=== PATIENT | female | born 1970 | race Caucasian/White ===

== ENCOUNTER 2018-06-20 14:27 | Emergency (ER) | payer BC ==
[2018-06-20] MEDS ORDERED: Sodium Chloride 0.9% 1,000 ML IV ONE ×2 (16:18→19:05)
[2018-06-20] MEDS ORDERED: Ondansetron 4 MG/2 ML SDV IVPUSH ONE (16:18)
[2018-06-20] MEDS ORDERED: Ketorolac 30 MG/ML SDV IVPUSH ONE (16:31)
[2018-06-20] MEDS ORDERED: Albuterol/Ipratropium 3.0-0.5 MG/3 ML Neb Soln NEB ONE (16:32)
--- NOTE | 2018-06-20 16:32 | EDM.PDOC ---
ED HPI GENERAL MEDICAL PROBLEM - General Chief Complaint: Respiratory Problem Stated Complaint: WEAKNESS Time Seen by Provider: 06/20/18 16:10 Source of Information: Reports: Patient History Limitations: Reports: No Limitations - History of Present Illness INITIAL COMMENTS - FREE TEXT/NARRATIVE: HISTORY AND PHYSICAL: History of present illness: Patient is a 48-year-old female who presents to the ED today with concern of headache, body aches, low-grade fever, and cough 2 days. Patient states she's also been having some nausea with occasional vomiting and episodes of diarrhea. Patient states her diarrhea is watery and occurs every time she eats. Patient has not taken anything for her symptoms. Patient states she also feels as if her "kidneys hurt". Patient states that she has been coughing so hard that the area where her kidneys are, "hurt." Patient denies chest pain, shortness of breath. Denies neck stiff ness, change in vision, syncope, or near syncope. Denies abdominal pain, or dysuria. Has not noted any blood in urine or stool. Patient states she has a history of a kidney issue but is not sure what. Patient denies any other health history. Review of systems: As per history of present illness and below otherwise all systems reviewed and negative. Past medical history: As per history of present illness and as reviewed below otherwise noncontributory. Surgical history: As per history of present illness and as reviewed below otherwise noncontributory. Social history: See social history for further information Family history: As per history of present illness and as reviewed below otherwise noncontributory. Physical exam: General: Patient is alert, oriented, and in no acute distress. She is sitting comfortably on exam table but is mildly tired appearing. HEENT: Atraumatic, normocephalic, pupils equal and reactive bilaterally, negative for conjunctival pallor or scleral icterus, mucous membranes dry, TMs normal bilaterally, throat clear, neck supple, nontender, trachea midline. No drooling or trismus noted. No meningeal signs. No hot potato voice noted. Lungs: Coughing illicit throughout exam and lungs sounds are limited due to coughing. Otherwise, clear to auscultation, breath sounds equal bilaterally, chest nontender. Heart: S1S2, regular rate and rhythm without overt murmur Abdomen: Obese, soft, nondistended, nontender. Negative for masses or hepatosplenomegaly. Negative for costovertebral tenderness. Pelvis: Stable nontender. Genitourinary: Deferred. Rectal: Deferred. Skin: Intact, warm, dry. No lesions or rashes noted. Extremities: Atraumatic, negative for cords or calf pain. Neurovascular unremarkable. Neuro: Awake, alert, oriented. Cranial nerves II through XII unremarkable. Cerebellum unremarkable. Motor and sensory unremarkable throughout. Exam nonfocal. Notes: On exam, patient does have coughing and appears to be volume depleted. Will do labs and imaging today. Patient is positive for influenza A. Dr. Cummins was involved in patients case. Did offer admission to patient but she declines at this time. She does express improvement of symptoms following therapeutics today. Discussed the importance for follow-up with her primary care provider. 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 Encourage patient to keep his appointment as scheduled. Supportive care measures were reviewed and discussed. Voices understanding and is agreeable to plan of care. Denies any further questions or concerns at this time. Diagnostics: CBC, CMP, stool studies, C. difficile, influenza, strep, UA, chest x-ray Therapeutics: DuoNeb, Toradol, morphine, Zofran, saline Prescription: Proair, Medrol Dose Pack, Tamiflu Impression: Influenza A Plan: 1. Take standard infectious contact precautions as discussed. 2. Take medications as prescribed. 3. Supportive care measures such as Tylenol and/or ibuprofen as directed for pain and fever management. Encourage small frequent sips of fluids to prevent dehydration. 4. Follow-up with your primary care provider as discussed. Return to the ED as needed and as discussed. Definitive disposition and diagnosis as appropriate pending reevaluation and review of above. Generalized Pain Score (Numeric/FACES): 8 - Related Data Allergies Allergy/AdvReac Type Severity Reaction Status Date / Time No Known Allergies Allergy Verified 06/20/18 14:51 Home Meds: Home Meds Losartan/Hydrochlorothiazide [Losartan-HCTZ 100-25 MG] 1 each PO DAILY 08/19/13 [History] Nitroglycerin 0.4 mg SL ASDIRECTED PRN #30 tab.subl 08/20/13 [Rx] Past Medical History HEENT History: Reports: None Cardiovascular History: Reports: High Cholesterol Respiratory History: Reports: None Genitourinary History: Reports: None TUGBOAT PILOT History: Reports: Dysfunctional Uterine Bleeding Musculoskeletal History: Reports: None Neurological History: Reports: None Psychiatric History: Reports: None Endocrine/Metabolic History: Reports: None Hematologic History: Reports: None Immunologic History: Reports: None Oncologic (Cancer) History: Reports: None Dermatologic History: Reports: None - Infectious Disease History Infectious Disease History: Reports: None - Past Surgical History Head Surgeries/Procedures: Reports: None GI Surgical History: Reports: Cholecystectomy Female Surgical History: Reports: Hysterectomy Social & Family History - Tobacco Use Smoking Status *Q: Current Some Day Smoker Years of Tobacco use: 20 Packs/Tins Daily: 0.2 - Caffeine Use Caffeine Use: Reports: Coffee - Recreational Drug Use Recreational Drug Use: No ED ROS GENERAL - Review of Systems Review Of Systems: ROS reveals no pertinent complaints other than HPI. ED EXAM, GENERAL - Physical Exam Exam: See Below (See dictation) Course - Vital Signs Last Recorded V/S: Last Vital Signs Temp 37.3 C 06/20/18 20:03 Pulse 112 H 06/20/18 20:03 Resp 18 06/20/18 20:03 BP 114/62 06/20/18 20:03 Pulse Ox 93 L 06/20/18 20:03 - Orders/Labs/Meds Orders: Active Orders 24 hr Category Date Time Status RT Aerosol Therapy [RC] ASDIRECTED Care 06/20/18 16:32 Active CDIFF TOX A+B [OP] Stat Lab 06/20/18 16:18 Ordered CULTURE BLOOD [BC] Stat Lab 06/20/18 19:38 Received CULTURE BLOOD [BC] Stat Lab 06/20/18 19:46 Received CULTURE STOOL + CAMPY+SHIGATOX [RM] Stat Lab 06/20/18 16:18 Ordered CULTURE STREP A CONFIRMATION [RM] Stat Lab 06/20/18 17:00 Results CULTURE URINE [] Stat Lab 06/20/18 18:30 Received OVA & PARASITES BY IMMUNOASSAY [MREF] Stat Lab 06/20/18 16:18 Ordered STREP SCRN A RAPID W CULT CONF [RM] Stat Lab 06/20/18 17:00 Results Sodium Chloride 0.9% [Normal Saline] 1,000 ml Med 06/20/18 19:05 Active IV STAT Blood Culture x2 Reflex Set [OM.PC] Stat Oth 06/20/18 19:05 Ordered Medication Orders Sodium Chloride (Normal Saline) 1,000 mls @ 999 mls/hr IV STAT ONE Stop: 06/20/18 20:05 Last Admin: 06/20/18 19:26 Dose: 999 mls/hr Labs: Laboratory Tests 06/20/18 06/20/18 06/20/18 Range/Units 17:00 17:00 18:30 WBC 15.20 H (4.0-11.0) K/uL RBC 4.34 (4.30-5.90) M/uL Hgb 14.2 (12.0-16.0) g/dL Hct 42.5 (36.0-46.0) % MCV 97.9 (80.0-98.0) fL MCH 32.7 H (27.0-32.0) pg MCHC 33.4 (31.0-37.0) g/dL RDW Std Deviation 54.3 (28.0-62.0) fl RDW Coeff of Nikhil 15 (11.0-15.0) % Plt Count 204 (150-400) K/uL MPV 10.20 (7.40-12.00) fL Neut % (Auto) 78.1 (48.0-80.0) % Lymph % (Auto) 12.4 L (16.0-40.0) % [place] % (Auto) 8.9 (0.0-15.0) % Eos % (Auto) 0.3 (0.0-7.0) % Baso % (Auto) 0.3 (0.0-1.5) % Neut # (Auto) 11.9 H (1.4-5.7) K/uL Lymph # (Auto) 1.9 (0.6-2.4) K/uL [place] # (Auto) 1.4 H (0.0-0.8) K/uL Eos # (Auto) 0.0 (0.0-0.7) K/uL Baso # (Auto) 0.0 (0.0-0.1) K/uL Nucleated RBC % 0.0 /100WBC Nucleated RBCs # 0 K/uL Sodium 142 (136-145) mmol/L Potassium 4.0 (3.5-5.1) mmol/L Chloride 106 (98-107) mmol/L Carbon Dioxide 23.6 (21.0-32.0) mmol/L BUN 20 H (7.0-18.0) mg/dL Creatinine 1.3 H (0.6-1.0) mg/dL Est Cr Clr Drug Dosing 39.50 mL/min Estimated GFR (MDRD) 43.5 ml/min Glucose 95 (74-106) mg/dL Calcium 8.9 (8.5-10.1) mg/dL Total Bilirubin 0.2 (0.2-1.0) mg/dL AST 23 (15-37) IU/L ALT 32 (14-63) IU/L Alkaline Phosphatase 90 (46-116) U/L Total Protein 7.5 (6.4-8.2) g/dL Albumin 2.9 L (3.4-5.0) g/dL Globulin 4.6 H (2.6-4.0) g/dL Albumin/Globulin Ratio 0.6 L (0.9-1.6) Urine Color YELLOW Urine Appearance CLEAR Urine pH 5.5 (5.0-8.0) Ur Specific [place] 1.025 (1.001-1.035) Urine Protein >=300 H (NEGATIVE) mg/dL Urine Glucose (UA) NEGATIVE (NEGATIVE) mg/dL Urine Ketones 15 H (NEGATIVE) mg/dL Urine Occult Blood MODERATE H (NEGATIVE) Urine Nitrite NEGATIVE (NEGATIVE) Urine Bilirubin NEGATIVE (NEGATIVE) Urine Urobilinogen 0.2 (<2.0) EU/dL Ur Leukocyte Esterase NEGATIVE (NEGATIVE) Urine RBC 2-3 (0-2/HPF) Urine WBC 0-1 (0-5/HPF) Ur Epithelial Cells RARE (NONE-FEW) Urine Bacteria RARE (NEGATIVE) Meds: Medications Generic Name Dose Route Start Last Admin Trade Name Freq PRN Reason Stop Dose Admin Sodium Chloride 1,000 mls @ 999 mls/hr 06/20/18 19:05 06/20/18 19:26 Normal Saline IV 06/20/18 20:05 999 mls/hr STAT ONE Administration Discontinued Medications Generic Name Dose Route Start Last Admin Trade Name Freq PRN Reason Stop Dose Admin Acetaminophen 1,000 mg 06/20/18 18:39 06/20/18 18:46 Tylenol PO 06/20/18 18:40 Not Given NOW ONE Acetaminophen Confirm 06/20/18 18:39 06/20/18 18:42 Tylenol Extra Strength Administered 06/20/18 18:40 1,000 mg Dose Administration 1,000 mg .ROUTE .STK-MED ONE Albuterol/Ipratropium 3 ml 06/20/18 16:32 06/20/18 16:46 Duoneb 3.0-0.5 Mg/3 Ml NEB 06/20/18 16:33 3 ml ONETIME ONE Administration Sodium Chloride 1,000 mls @ 999 mls/hr 06/20/18 16:18 06/20/18 16:53 Normal Saline IV 06/20/18 17:18 999 mls/hr STAT ONE Administration Ketorolac Tromethamine 30 mg 06/20/18 16:31 06/20/18 16:57 Toradol IVPUSH 06/20/18 16:32 Not Given ONETIME ONE Morphine Sulfate 2 mg 06/20/18 18:18 06/20/18 18:33 Morphine IVPUSH 06/20/18 18:19 2 mg ONETIME ONE Administration Ondansetron HCl 4 mg 06/20/18 16:18 06/20/18 16:53 Zofran IVPUSH 06/20/18 16:19 4 mg ONETIME ONE Administration Departure - Departure Time of Disposition: 20:03 Disposition: Home, Self-Care 01 Clinical Impression: Influenza A - Discharge Information Instructions: Influenza, Adult, [id number] Referrals: PCP,Unknown [Primary Care Provider] - Forms: ED Department Discharge Additional Instructions: The following information is given to patients seen in the emergency department who are being discharged to home. This information is to outline your options for follow-up care. We provide all patients seen in our emergency department with a follow-up referral. The need for follow-up, as well as the timing and circumstances, are variable depending upon the specifics of your emergency department visit. If you don't have a primary care physician on staff, we will provide you with a referral. We always advise you to contact your personal physician following an emergency department visit to inform them of the circumstance of the visit and for follow-up with them and/or the need for any referrals to a consulting specialist. The emergency department will also refer you to a specialist when appropriate. This referral assures that you have the opportunity for follow-up care with a specialist. All of these measure are taken in an effort to provide you with optimal care, which includes your follow-up. Under all circumstances we always encourage you to contact your private physician who remains a resource for coordinating your care. When calling for follow-up care, please make the office aware that this follow-up is from your recent emergency room visit. If for any reason you are refused follow-up, please contact the [facility] Emergency Department at and asked to speak to the emergency department charge nurse. [facility] [address] [place] [id number] [id number] 1. Take standard infectious contact precautions as discussed. 2. Take medications as prescribed. 3. Supportive care measures such as Tylenol and/or ibuprofen as directed for pain and fever management. Encourage small frequent sips of fluids to prevent dehydration. 4. Follow-up with your primary care provider as discussed. Return to the ED as needed and as discussed. - My Orders Last 24 Hours: My Active Orders 06/20/18 16:18 CDIFF TOX A+B [OP] Stat CULTURE STOOL + CAMPY+SHIGATOX [RM] Stat OVA & PARASITES BY IMMUNOASSAY [MREF] Stat 06/20/18 16:32 RT Aerosol Therapy [RC] ASDIRECTED 06/20/18 17:00 CULTURE STREP A CONFIRMATION [RM] Stat STREP SCRN A RAPID W CULT CONF [RM] Stat 06/20/18 18:30 CULTURE URINE [RM] Stat 06/20/18 19:05 Sodium Chloride 0.9% [Normal Saline] 1,000 ml IV STAT Blood Culture x2 Reflex Set [OM.PC] Stat 06/20/18 19:38 CULTURE BLOOD [BC] Stat 06/20/18 19:46 CULTURE BLOOD [BC] Stat - Assessment/Plan Last 24 Hours: My Active Orders 06/20/18 16:18 CDIFF TOX A+B [OP] Stat CULTURE STOOL + CAMPY+SHIGATOX [RM] Stat OVA & PARASITES BY IMMUNOASSAY [MREF] Stat 06/20/18 16:32 RT Aerosol Therapy [RC] ASDIRECTED 06/20/18 17:00 CULTURE STREP A CONFIRMATION [RM] Stat STREP SCRN A RAPID W CULT CONF [RM] Stat 06/20/18 18:30 CULTURE URINE [RM] Stat 06/20/18 19:05 Sodium Chloride 0.9% [Normal Saline] 1,000 ml IV STAT Blood Culture x2 Reflex Set [OM.PC] Stat 06/20/18 19:38 CULTURE BLOOD [BC] Stat 06/20/18 19:46 CULTURE BLOOD [BC] Stat
--- NOTE | 2018-06-20 17:35 | CR ---
Indication: Chest pain, cough and shortness of breath Technique: Chest 2 views Comparison: None Findings: Cardiovascular and mediastinum: Heart size and vasculature are normal in caliber and appearance. Lungs and pleural spaces: Lungs are clear. No sign of infiltrate or mass. No sign of pleural effusion. No pneumothorax. Bones and soft tissues: No significant findings. Impression: No acute or significant findings. Dictated by Jacky Perkins MD @ Jun 20 2018 5:33PM Signed by Dr. Jacky Perkins @ Jun 20 2018 5:34PM
[2018-06-20] MEDS ORDERED: Morphine 2 MG/ML Syringe IVPUSH ONE (18:18)
[2018-06-20] MEDS ORDERED: Acetaminophen 500 MG Tab ONE (18:39)
[2018-06-20] MEDS ORDERED: Acetaminophen 325 MG Tab PO ONE (18:39)
== END 2018-06-20 20:45 | disposition home or self-care (01) ==
LOC: MW.ED 14:27
DX: J10.1 Influenza due to other identified influenza virus with other respiratory manifestations (principal); F17.210 Nicotine dependence, cigarettes, uncomplicated; E78.00 Pure hypercholesterolemia, unspecified; Z79.899 Other long term (current) drug therapy
CPT/HCPCS: 36415; 71046; 80053; 81001; 85025; 87040; 87081; 87086; 87804; 87880; 94640; 96361; 96374; 96375; 99285; A9270; J2270; J2405; J7040; 99284; J7620-GY

== ENCOUNTER 2018-10-21 14:12 | Emergency (ER) | payer BC ==
[2018-10-21] MEDS ORDERED: Ketorolac 30 MG/ML SDV IM ONE (14:25)
--- NOTE | 2018-10-21 14:25 | EDM.PDOC ---
ED HPI GENERAL MEDICAL PROBLEM - General Chief Complaint: Back Pain or Injury Stated Complaint: BACK/SIDE PAIN Time Seen by Provider: 10/21/18 14:21 Source of Information: Reports: Patient History Limitations: Reports: No Limitations - History of Present Illness INITIAL COMMENTS - FREE TEXT/NARRATIVE: History of present illness: []Patient fell 5 days ago while on a hike and with her left arm up and fell onto her left chest. Some but now she states it is hard to breathe. Review of systems: As per history of present illness and below otherwise all systems reviewed and negative. Past medical history: As per history of present illness and as reviewed below otherwise noncontributory. Surgical history: As per history of present illness and as reviewed below otherwise noncontributory. Social history: No reported history of drug or alcohol abuse. Family history: As per history of present illness and as reviewed below otherwise noncontributory. Physical exam: General: Well developed, well nourished in NAD HEENT: Atraumatic, normocephalic, pupils reactive, negative for conjunctival pallor or scleral icterus, mucous membranes moist, throat clear, neck supple, nontender, trachea midline. Lungs: Clear to auscultation, breath sounds equal bilaterally, chest tender left without any cutaneous or bony crepitance, Heart: S1S2, regular, negative for clicks, rubs, or JVD. Abdomen: NABS, Soft, nondistended, nontender no rebound or guarding. Negative for masses or hepatosplenomegaly. Negative for costovertebral tenderness. Pelvis: Stable nontender. Genitourinary: Deferred. Rectal: Deferred. Extremities: Atraumatic, negative for cords or calf pain. Neurovascular unremarkable. Neuro: Awake, alert, oriented. Cranial nerves II through XII unremarkable. Cerebellum unremarkable. Motor and sensory unremarkable throughout. Exam nonfocal. Skin:warm and dry Diagnostics: Chest x-ray rib series Therapeutics: Tramadol ED Course: Stable Impression: Sixth rib fracture nondisplaced no pneumothorax Prescriptions: Tramadol Plan: Take meds as directed, follow up with your primary care physician, return to ER if symptoms worsen or change. Definitive disposition and diagnosis as appropriate pending reevaluation and review of above. - Related Data Allergies Allergy/AdvReac Type Severity Reaction Status Date / Time No Known Allergies Allergy Verified 10/21/18 14:38 Home Meds: Home Meds Losartan/Hydrochlorothiazide [Losartan-HCTZ 100-25 MG] 1 each PO DAILY 08/19/13 [History] Nitroglycerin 0.4 mg SL ASDIRECTED PRN #30 tab.subl 08/20/13 [Rx] traMADol HCl [Tramadol HCl] 50 mg PO Q6H PRN #16 tablet 10/21/18 [Rx] Past Medical History HEENT History: Reports: None Cardiovascular History: Reports: High Cholesterol Respiratory History: Reports: None Genitourinary History: Reports: None [employer] History: Reports: Dysfunctional Uterine Bleeding Musculoskeletal History: Reports: None Neurological History: Reports: None Psychiatric History: Reports: None Endocrine/Metabolic History: Reports: None Hematologic History: Reports: None Immunologic History: Reports: None Oncologic (Cancer) History: Reports: None Dermatologic History: Reports: None - Infectious Disease History Infectious Disease History: Reports: None - Past Surgical History Head Surgeries/Procedures: Reports: None GI Surgical History: Reports: Cholecystectomy Female Surgical History: Reports: Hysterectomy Social & Family History - Caffeine Use Caffeine Use: Reports: Coffee ED ROS GENERAL - Review of Systems Review Of Systems: See Below ED EXAM, GENERAL - Physical Exam Exam: See Below Course - Orders/Labs/Meds Meds: Medications Discontinued Medications Generic Name Dose Route Start Last Admin Trade Name Freq PRN Reason Stop Dose Admin Ketorolac Tromethamine 30 mg 10/21/18 14:25 10/21/18 14:37 Toradol IM 10/21/18 14:26 Not Given ONETIME ONE Tramadol HCl 50 mg 10/21/18 14:29 10/21/18 14:32 Ultram PO 10/21/18 14:30 50 mg ONETIME ONE Administration Tramadol HCl Confirm 10/21/18 14:30 10/21/18 14:37 Ultram Administered 10/21/18 14:31 Not Given Dose 50 mg .ROUTE .STK-MED ONE Departure - Departure Time of Disposition: 15:34 Disposition: Home, Self-Care 01 Condition: Good Clinical Impression: Left rib fracture Clinical Impression: (Ruled Out): Fracture of six ribs of left side Prescriptions: traMADol HCl [Tramadol HCl] 50 mg PO Q6H PRN #16 tablet PRN Reason: Pain Referrals: PCP,Unknown [Primary Care Provider] - Forms: ED Department Discharge Additional Instructions: The following information is given to patients seen in the emergency department who are being discharged to home. This information is to outline your options for follow-up care. We provide all patients seen in our emergency department with a follow-up referral. The need for follow-up, as well as the timing and circumstances, are variable depending upon the specifics of your emergency department visit. If you don't have a primary care physician on staff, we will provide you with a referral. We always advise you to contact your personal physician following an emergency department visit to inform them of the circumstance of the visit and for follow-up with them and/or the need for any referrals to a consulting specialist. The emergency department will also refer you to a specialist when appropriate. This referral assures that you have the opportunity for follow-up care with a specialist. All of these measure are taken in an effort to provide you with optimal care, which includes your follow-up. Under all circumstances we always encourage you to contact your private physician who remains a resource for coordinating your care. When calling for follow-up care, please make the office aware that this follow-up is from your recent emergency room visit. If for any reason you are refused follow-up, please contact the [facility] Emergency Department at and asked to speak to the emergency department charge nurse. [facility] [address] [place] [id number]
[2018-10-21] MEDS ORDERED: traMADol 50 MG Tab PO ONE (14:29)
[2018-10-21] MEDS ORDERED: traMADol 50 MG Tab ONE (14:30)
--- NOTE | 2018-10-21 15:18 | CR ---
INDICATION: Fall TECHNIQUE: Three views of the left ribs COMPARISON: None available FINDINGS/IMPRESSION : Focal deformity of the anterolateral left 6 rib suggestive of a fracture. Correlate for focal tenderness. Pulmonary basilar atelectatic changes. A left lower lung opacity on the oblique views could represent consolidation and/or pleural effusion, although not well seen on the frontal view. Correlate with PA and lateral views of the chest. Dictated by Isra Gtz MD @ 10/21/2018 3:14:58 PM Dictated by: Isra Gtz MD @ 10/21/2018 15:16:34 (Electronically Signed)
== END 2018-10-21 15:45 | disposition home or self-care (01) ==
LOC: MW.ED 14:12
DX: S22.32XA Fracture of one rib, left side, initial encounter for closed fracture (principal); E78.00 Pure hypercholesterolemia, unspecified; Z79.899 Other long term (current) drug therapy; W20.8XXA Other cause of strike by thrown, projected or falling object, initial encounter
CPT/HCPCS: 71100; 93005; 99283; A9270

== ENCOUNTER 2019-04-09 15:13 | Day surgery (SDC) | payer OTHER ==
[2019-04-09] MEDS ORDERED: Ondansetron 4 MG/2 ML SDV IVPUSH ONE (15:29)
[2019-04-09] MEDS ORDERED: Sodium Chloride 0.9% 1,000 ML IV ONE (15:29)
--- NOTE | 2019-04-09 15:30 | EDM.PDOC ---
ED HPI GENERAL MEDICAL PROBLEM - General Chief Complaint: Gastrointestinal Problem Stated Complaint: VOMITING Time Seen by Provider: 04/09/19 15:30 Source of Information: Reports: Patient - History of Present Illness INITIAL COMMENTS - FREE TEXT/NARRATIVE: HISTORY AND PHYSICAL: History of present illness: [Presents with right lower quadrant pain 5 out of 10 nonradiating with guarding and rebound nausea vomiting diarrhea since last night ] Review of systems: As per history of present illness and below otherwise all systems reviewed and negative. Past medical history: As per history of present illness and as reviewed below otherwise noncontributory. Surgical history: As per history of present illness and as reviewed below otherwise noncontributory. Social history: No reported history of drug or alcohol abuse. Family history: As per history of present illness and as reviewed below otherwise noncontributory. Physical exam: HEENT: Atraumatic, normocephalic, pupils reactive, negative for conjunctival pallor or scleral icterus, mucous membranes moist, throat clear, neck supple, nontender, trachea midline. Lungs: Clear to auscultation, breath sounds equal bilaterally, chest nontender. Heart: S1S2, regular, negative for clicks, rubs, or JVD. Abdomen: Soft, nondistended, tender lower quadrant with guarding. Negative for masses or hepatosplenomegaly. Negative for costovertebral tenderness. Pelvis: Stable nontender. Genitourinary: Deferred. Rectal: Deferred. Extremities: Atraumatic, negative for cords or calf pain. Neurovascular unremarkable. Neuro: Awake, alert, oriented. Cranial nerves II through XII unremarkable. Cerebellum unremarkable. Motor and sensory unremarkable throughout. Exam nonfocal. Diagnostics: [BC CMP UA lipase troponin Chest [address] abdomen pelvis] Therapeutics: [Normal saline Morphine Zofran ] Impression: [Acute appendicitis h/o IgA nephropathy Chronic history of baseline] Definitive disposition and diagnosis as appropriate pending reevaluation and review of above. abd Pain Score (Numeric/FACES): 10 - Related Data Allergies Allergy/AdvReac Type Severity Reaction Status Date / Time No Known Allergies Allergy Verified 10/21/18 18:21 Home Meds: Home Meds Losartan/Hydrochlorothiazide [Losartan-HCTZ 100-25 MG] 1 each PO DAILY 08/19/13 [History] Allopurinol [Zyloprim] 300 mg 04/09/19 [History] Magnesium Amino Acid Chelate [Magnesium] 04/09/19 [History] Omeprazole 1 tab PO DAILY 04/09/19 [History] Potassium Gluconate [Potassium] 04/09/19 [History] Propranolol [Inderal] 1 tab PO BID 04/09/19 [History] Past Medical History HEENT History: Reports: None Cardiovascular History: Reports: High Cholesterol Respiratory History: Reports: None Genitourinary History: Reports: None 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 Musculoskeletal History: Reports: None Neurological History: Reports: None Psychiatric History: Reports: None Endocrine/Metabolic History: Reports: None Hematologic History: Reports: None Immunologic History: Reports: None Oncologic (Cancer) History: Reports: None Dermatologic History: Reports: None - Infectious Disease History Infectious Disease History: Reports: None - Past Surgical History Head Surgeries/Procedures: Reports: None GI Surgical History: Reports: Cholecystectomy Female Surgical History: Reports: Hysterectomy Social & Family History - Family History Family Medical History: Noncontributory - Caffeine Use Caffeine Use: Reports: Coffee ED ROS GENERAL - Review of Systems Review Of Systems: See Below ED EXAM, GENERAL - Physical Exam Exam: See Below Course - Vital Signs Last Recorded V/S: Last Vital Signs Temp 98.5 F 04/09/19 15:29 Pulse 91 04/09/19 18:20 Resp 18 04/09/19 18:20 BP 111/70 04/09/19 18:20 Pulse Ox 97 04/09/19 18:20 - Orders/Labs/Meds Orders: Active Orders 24 hr Category Date Time Status Lactated Ringers [Ringers, Lactated] 1,000 ml Med 04/09/19 19:15 Active IV ASDIRECTED cefOXitin [Mefoxin in Dextrose,Iso-Osm 2 GM/50 ML] 2 gm Med 04/09/19 19:13 Active Premix Bag 1 bag IV ONETIME Medication Orders Cefoxitin Sodium 2 gm/ Premix 50 mls @ 100 mls/hr IV ONETIME ONE Stop: 04/09/19 19:42 Lactated Ringer's (Ringers, Lactated) 1,000 mls @ 125 mls/hr IV ASDIRECTED BAL Labs: Laboratory Tests 04/09/19 04/09/19 04/09/19 Range/Units 15:56 16:17 16:17 WBC 15.59 H (4.0-11.0) K/uL RBC 4.16 L (4.30-5.90) M/uL Hgb 13.3 (12.0-16.0) g/dL Hct 40.5 (36.0-46.0) % MCV 97.4 (80.0-98.0) fL MCH 32.0 (27.0-32.0) pg MCHC 32.8 (31.0-37.0) g/dL RDW Std Deviation 52.8 (28.0-62.0) fl RDW Coeff of Nikhil 15 (11.0-15.0) % Plt Count 238 (150-400) K/uL MPV 10.10 (7.40-12.00) fL Neut % (Auto) 78.2 (48.0-80.0) % Lymph % (Auto) 14.3 L (16.0-40.0) % [place] % (Auto) 7.2 (0.0-15.0) % Eos % (Auto) 0.2 (0.0-7.0) % Baso % (Auto) 0.1 (0.0-1.5) % Neut # (Auto) 12.2 H (1.4-5.7) K/uL Lymph # (Auto) 2.2 (0.6-2.4) K/uL [place] # (Auto) 1.1 H (0.0-0.8) K/uL Eos # (Auto) 0.0 (0.0-0.7) K/uL Baso # (Auto) 0.0 (0.0-0.1) K/uL Nucleated RBC % 0.0 /100WBC Nucleated RBCs # 0 K/uL Sodium 143 (136-145) mmol/L Potassium 4.1 (3.5-5.1) mmol/L Chloride 106 (98-107) mmol/L Carbon Dioxide 27.0 (21.0-32.0) mmol/L BUN 15 (7.0-18.0) mg/dL Creatinine 1.3 H (0.6-1.0) mg/dL Est Cr Clr Drug Dosing 37.19 mL/min Estimated GFR (MDRD) 43.4 ml/min Glucose 114 H (74-106) mg/dL Calcium 9.3 (8.5-10.1) mg/dL Total Bilirubin 0.5 (0.2-1.0) mg/dL AST 11 L (15-37) IU/L ALT 18 (14-63) IU/L Alkaline Phosphatase 103 (46-116) U/L Troponin I < 0.050 (0.000-0.056) ng/mL Total Protein 7.3 (6.4-8.2) g/dL Albumin 3.3 L (3.4-5.0) g/dL Globulin 4.0 (2.6-4.0) g/dL Albumin/Globulin Ratio 0.8 L (0.9-1.6) Lipase 76 (73-393) U/L Urine Color YELLOW Urine Appearance HAZY Urine pH 6.0 (5.0-8.0) Ur Specific [place] >= 1.030 (1.001-1.035) Urine Protein >=300 H (NEGATIVE) mg/dL Urine Glucose (UA) NEGATIVE (NEGATIVE) mg/dL Urine Ketones NEGATIVE (NEGATIVE) mg/dL Urine Occult Blood TRACE-INTACT H (NEGATIVE) Urine Nitrite NEGATIVE (NEGATIVE) Urine Bilirubin NEGATIVE (NEGATIVE) Urine Urobilinogen 0.2 (<2.0) EU/dL Ur Leukocyte Esterase NEGATIVE (NEGATIVE) Urine RBC 0-2 (0-2/HPF) Urine WBC 0-2 (0-5/HPF) Ur Epithelial Cells RARE (NONE-FEW) Urine Bacteria RARE (NEGATIVE) Meds: Medications Generic Name Dose Route Start Last Admin Trade Name Freq PRN Reason Stop Dose Admin Cefoxitin Sodium 2 gm/ Premix 50 mls @ 100 mls/hr 04/09/19 19:13 IV 04/09/19 19:42 ONETIME ONE Lactated Ringer's 1,000 mls @ 125 mls/hr 04/09/19 19:15 Ringers, Lactated IV ASDIRECTED BAL Discontinued Medications Generic Name Dose Route Start Last Admin Trade Name Freq PRN Reason Stop Dose Admin Sodium Chloride 1,000 mls @ 999 mls/hr 04/09/19 15:29 04/09/19 16:09 Normal Saline IV 04/09/19 16:29 999 mls/hr STAT ONE Administration Ketorolac Tromethamine 30 mg 04/09/19 16:22 04/09/19 17:52 Toradol IVPUSH 04/09/19 16:23 Not Given ONETIME ONE Morphine Sulfate 2 mg 04/09/19 16:27 04/09/19 16:31 Morphine IVPUSH 04/09/19 16:28 2 mg ONETIME ONE Administration Ondansetron HCl 8 mg 04/09/19 15:29 04/09/19 16:09 Zofran IVPUSH 04/09/19 15:30 8 mg ONETIME ONE Administration Departure - Departure Time of Disposition: 19:28 Disposition: Refer to Observation Condition: Fair Clinical Impression: Appendicitis - Discharge Information Sepsis Event Note - Focused Exam Vital Signs: Vital Signs Temp Pulse Resp BP Pulse Ox 04/09/19 18:20 91 18 111/70 97 04/09/19 17:49 87 18 105/66 97 04/09/19 16:32 84 18 124/76 96 04/09/19 15:29 98.5 F 85 20 118/78 96 Date Exam was Performed: 04/09/19 Time Exam was Performed: 19:27
[2019-04-09] MEDS ORDERED: Ketorolac 30 MG/ML SDV IVPUSH ONE (16:22)
[2019-04-09] MEDS ORDERED: Morphine 2 MG/ML Syringe IVPUSH ONE (16:27)
[2019-04-09 16:51] LABS: BLOOD UREA NITROGEN,BUN 15 mg/dL (7.0-18.0); CHLORIDE,CL 106 mmol/L (98-107); GLUCOSE RANDOM 114 mg/dL (74-106); LIPASE 76 U/L (73-393); POTASSIUM,K 4.1 mmol/L (3.5-5.1); SODIUM,NA 143 mmol/L (136-145)
--- NOTE | 2019-04-09 18:07 | CT ---
CT abdomen and pelvis Technique: Multiple axial sections were obtained from above the dome of the diaphragm inferiorly through the pubic symphysis. Intravenous and oral contrast was not utilized. Findings: Inflammatory change is seen around a mildly enlarged appendix. Findings are compatible with appendicitis. No abscess or free fluid is seen at this time. Other findings: Mild atelectasis is noted within both lung bases. Previous stomach surgery is noted. Liver shows no focal parenchymal abnormality. Surgical clips are seen from prior cholecystectomy. Adrenal glands show no nodule. Kidneys show no abnormal calcifications. Small cortical cyst is noted off the right kidney measuring 7 mm. Aorta and iliac vessels shows atherosclerotic calcification with no aneurysm. No retroperitoneal adenopathy or mesenteric abnormalities are seen. No pelvic mass or adenopathy is seen. Bone window settings were reviewed. Mild degenerative change is noted within the spine. No acute osseous finding is seen. Impression: 1. Findings compatible with appendicitis. 2. Other findings as noted above which are believed to be incidental and nonacute. Diagnostic code #5 This report was dictated in [place] Standard Time
[2019-04-09] MEDS ORDERED: cefOXitin 2 GM in Premix Bag 1 BAG IV ONE ×2 (19:13→19:33)
[2019-04-09] MEDS ORDERED: Lactated Ringers 1,000 ML IV SCH ×3 (19:15→21:30)
--- NOTE | 2019-04-09 19:30 | PCM.SN ---
- Free Text/Narrative Note: pt seen, chart reviewed, acute appendicitis cw h/p and imaging studies; proceed w surgery, rb dw pt re bleeding/infection/damage to nearby organs; pt concurs and proceed; [id number]
[2019-04-09] MEDS ORDERED: Propofol 200 MG/20 ML SDV ONE (19:46)
[2019-04-09] MEDS ORDERED: fentaNYL 250 MCG/5 ML SDV ONE (19:46)
[2019-04-09] MEDS ORDERED: Lidocaine 2% 5 ML SDV ONE (19:49)
[2019-04-09] MEDS ORDERED: Ondansetron 4 MG/2 ML SDV ONE (19:49)
[2019-04-09] MEDS ORDERED: Dexamethasone 4 MG/ML 5 ML MDV ONE (19:49)
[2019-04-09] MEDS ORDERED: Rocuronium 100 MG/10 ML Syringe ONE (19:49)
[2019-04-09] MEDS ORDERED: Bupivacaine 0.25% 10 ML SDV ONE ×2 (19:56→19:59)
[2019-04-09] MEDS ORDERED: Octyl 2-Cyanoacrylate 1 Tube ONE (19:57)
--- NOTE | 2019-04-09 19:59 | PCM.PREANE ---
Preanesthetic Assessment - Anesthesia/Transfusion/Family Hx Anesthesia History: Prior Anesthesia Without Reaction Family History of Anesthesia Reaction: No - Review of Systems General: No Symptoms Pulmonary: No Symptoms Cardiovascular: No Symptoms Gastrointestinal: Abdominal Pain Neurological: No Symptoms Other: Reports: None - Physical Assessment NPO Status Date: 04/08/19 NPO Status Time: 23:59 Vital Signs: Last Vital Signs Temp 36.9 C 04/09/19 15:29 Pulse 94 04/09/19 19:20 Resp 17 04/09/19 19:20 BP 115/67 04/09/19 19:20 Pulse Ox 96 04/09/19 19:20 Height: 5 ft Weight: 84.822 kg ASA Class: 2E Mental Status: Alert & Oriented x3 Airway Class: Mallampati = 2 Dentition: Reports: Normal Dentition Thyro-Mental Finger Breadths: 3 Mouth Opening Finger Breadths: 3 ROM/Head Extension: Full Lungs: Clear to Auscultation, Normal Respiratory Effort Cardiovascular: Regular Rate, Regular Rhythm - Lab Values: Laboratory Last Values WBC 15.59 K/uL (4.0-11.0) H 04/09/19 16:17 RBC 4.16 M/uL (4.30-5.90) L 04/09/19 16:17 Hgb 13.3 g/dL (12.0-16.0) 04/09/19 16:17 Hct 40.5 % (36.0-46.0) 04/09/19 16:17 MCV 97.4 fL (80.0-98.0) 04/09/19 16:17 MCH 32.0 pg (27.0-32.0) 04/09/19 16:17 MCHC 32.8 g/dL (31.0-37.0) 04/09/19 16:17 RDW Std Deviation 52.8 fl (28.0-62.0) 04/09/19 16:17 RDW Coeff of Nikhil 15 % (11.0-15.0) 04/09/19 16:17 Plt Count 238 K/uL (150-400) 04/09/19 16:17 MPV 10.10 fL (7.40-12.00) 04/09/19 16:17 Neut % (Auto) 78.2 % (48.0-80.0) 04/09/19 16:17 Lymph % (Auto) 14.3 % (16.0-40.0) L 04/09/19 16:17 [place] % (Auto) 7.2 % (0.0-15.0) 04/09/19 16:17 Eos % (Auto) 0.2 % (0.0-7.0) 04/09/19 16:17 Baso % (Auto) 0.1 % (0.0-1.5) 04/09/19 16:17 Neut # (Auto) 12.2 K/uL (1.4-5.7) H 04/09/19 16:17 Lymph # (Auto) 2.2 K/uL (0.6-2.4) 04/09/19 16:17 [place] # (Auto) 1.1 K/uL (0.0-0.8) H 04/09/19 16:17 Eos # (Auto) 0.0 K/uL (0.0-0.7) 04/09/19 16:17 Baso # (Auto) 0.0 K/uL (0.0-0.1) 04/09/19 16:17 Nucleated RBC % 0.0 /100WBC 04/09/19 16:17 Nucleated RBCs # 0 K/uL 04/09/19 16:17 Sodium 143 mmol/L (136-145) 04/09/19 16:17 Potassium 4.1 mmol/L (3.5-5.1) 04/09/19 16:17 Chloride 106 mmol/L (98-107) 04/09/19 16:17 Carbon Dioxide 27.0 mmol/L (21.0-32.0) 04/09/19 16:17 BUN 15 mg/dL (7.0-18.0) 04/09/19 16:17 Creatinine 1.3 mg/dL (0.6-1.0) H 04/09/19 16:17 Est Cr Clr Drug Dosing 37.19 mL/min 04/09/19 16:17 Estimated GFR (MDRD) 43.4 ml/min 04/09/19 16:17 Glucose 114 mg/dL (74-106) H 04/09/19 16:17 Calcium 9.3 mg/dL (8.5-10.1) 04/09/19 16:17 Total Bilirubin 0.5 mg/dL (0.2-1.0) 04/09/19 16:17 AST 11 IU/L (15-37) L 04/09/19 16:17 ALT 18 IU/L (14-63) 04/09/19 16:17 Alkaline Phosphatase 103 U/L (46-116) 04/09/19 16:17 Troponin I < 0.050 ng/mL (0.000-0.056) 04/09/19 16:17 Total Protein 7.3 g/dL (6.4-8.2) 04/09/19 16:17 Albumin 3.3 g/dL (3.4-5.0) L 04/09/19 16:17 Globulin 4.0 g/dL (2.6-4.0) 04/09/19 16:17 Albumin/Globulin Ratio 0.8 (0.9-1.6) L 04/09/19 16:17 Lipase 76 U/L (73-393) 04/09/19 16:17 Urine Color YELLOW 04/09/19 15:56 Urine Appearance HAZY 04/09/19 15:56 Urine pH 6.0 (5.0-8.0) 04/09/19 15:56 Ur Specific [place] >= 1.030 (1.001-1.035) 04/09/19 15:56 Urine Protein >=300 mg/dL (NEGATIVE) H 04/09/19 15:56 Urine Glucose (UA) NEGATIVE mg/dL (NEGATIVE) 04/09/19 15:56 Urine Ketones NEGATIVE mg/dL (NEGATIVE) 04/09/19 15:56 Urine Occult Blood TRACE-INTACT (NEGATIVE) H 04/09/19 15:56 Urine Nitrite NEGATIVE (NEGATIVE) 04/09/19 15:56 Urine Bilirubin NEGATIVE (NEGATIVE) 04/09/19 15:56 Urine Urobilinogen 0.2 EU/dL (<2.0) 04/09/19 15:56 Ur Leukocyte Esterase NEGATIVE (NEGATIVE) 04/09/19 15:56 Urine RBC 0-2 (0-2/HPF) 04/09/19 15:56 Urine WBC 0-2 (0-5/HPF) 04/09/19 15:56 Ur Epithelial Cells RARE (NONE-FEW) 04/09/19 15:56 Urine Bacteria RARE (NEGATIVE) 04/09/19 15:56 - Allergies Allergies/Adverse Reactions: Allergies Allergy/AdvReac Type Severity Reaction Status Date / Time No Known Allergies Allergy Verified 10/21/18 18:21 - Anesthesia Plan Free Text/Narrative:: General anesthesia with ETT Pre-Op Medication Ordered: None - Acknowledgements Anesthesia Type Planned: General Anesthesia Pt an Appropriate Candidate for the Planned Anesthesia: Yes Alternatives and Risks of Anesthesia Discussed w Pt/Guardian: Yes Pt/Guardian Understands and Agrees with Anesthesia Plan: Yes PreAnesthesia Questionnaire HEENT History: Reports: None Cardiovascular History: Reports: High Cholesterol Respiratory History: Reports: None Gastrointestinal History: Reports: GERD Other Gastrointestinal History: controlled on meds Other Genitourinary History: IGA nephropathy-monitoring 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 Musculoskeletal History: Reports: None Neurological History: Reports: None Psychiatric History: Reports: Anxiety Endocrine/Metabolic History: Reports: None Hematologic History: Reports: None Immunologic History: Reports: None Oncologic (Cancer) History: Reports: None Dermatologic History: Reports: None - Infectious Disease History Infectious Disease History: Reports: None - Past Surgical History Head Surgeries/Procedures: Reports: None GI Surgical History: Reports: Bariatric Procedure, Cholecystectomy Other GI Surgeries/Procedures: Gastric Sleeve 08/2018 Female Surgical History: Reports: Hysterectomy - SUBSTANCE USE Smoking Status *Q: Never Smoker Recreational Drug Use History: No - HOME MEDS Home Medications: Home Meds Losartan/Hydrochlorothiazide [Losartan-HCTZ 100-25 MG] 1 each PO DAILY 08/19/13 [History] Allopurinol [Zyloprim] 300 mg 04/09/19 [History] Magnesium Amino Acid Chelate [Magnesium] 04/09/19 [History] Omeprazole 1 tab PO DAILY 04/09/19 [History] Potassium Gluconate [Potassium] 04/09/19 [History] Propranolol [Inderal] 1 tab PO BID 04/09/19 [History] - CURRENT (IN HOUSE) MEDS Current Meds: Current Medications Lactated Ringer's (Ringers, Lactated) 1,000 mls @ 125 mls/hr IV ASDIRECTED BAL Last Admin: 04/09/19 19:33 Dose: 125 mls/hr Cefoxitin Sodium 2 gm/ Premix 50 mls @ 100 mls/hr IV ONETIME ONE Stop: 04/09/19 20:02 Lactated Ringer's (Ringers, Lactated) 1,000 mls @ 125 mls/hr IV ASDIRECTED BAL Discontinued Medications Dexamethasone (Dexamethasone) Confirm Administered Dose 20 mg .ROUTE .STK-MED ONE Stop: 04/09/19 19:50 Fentanyl (Sublimaze) Confirm Administered Dose 250 mcg .ROUTE .STK-MED ONE Stop: 04/09/19 19:47 Sodium Chloride (Normal Saline) 1,000 mls @ 999 mls/hr IV STAT ONE Stop: 04/09/19 16:29 Last Admin: 04/09/19 16:09 Dose: 999 mls/hr Cefoxitin Sodium 2 gm/ Premix 50 mls @ 100 mls/hr IV ONETIME ONE Stop: 04/09/19 19:42 Last Admin: 04/09/19 19:32 Dose: 100 mls/hr Ketorolac Tromethamine (Toradol) 30 mg IVPUSH ONETIME ONE Stop: 04/09/19 16:23 Last Admin: 04/09/19 17:52 Dose: Not Given Lidocaine (Xylocaine-Mpf 2%) Confirm Administered Dose 5 ml .ROUTE .STK-MED ONE Stop: 04/09/19 19:50 Morphine Sulfate (Morphine) 2 mg IVPUSH ONETIME ONE Stop: 04/09/19 16:28 Last Admin: 04/09/19 16:31 Dose: 2 mg Ondansetron HCl (Zofran) 8 mg IVPUSH ONETIME ONE Stop: 04/09/19 15:30 Last Admin: 04/09/19 16:09 Dose: 8 mg Ondansetron HCl (Zofran) Confirm Administered Dose 4 mg .ROUTE .STK-MED ONE Stop: 04/09/19 19:50 Propofol (Diprivan 20 Ml) Confirm Administered Dose 400 mg .ROUTE .STK-MED ONE Stop: 04/09/19 19:47 Rocuronium [place] (Zemuron) Confirm Administered Dose 100 mg .ROUTE .STK-MED ONE Stop: 04/09/19 19:50
[2019-04-09] MEDS ORDERED: Phenylephrine/Normal Saline 100 MCG/ML 10 ML Syringe ONE (20:24)
[2019-04-09] MEDS ORDERED: Naloxone 0.4 MG/ML Syringe IVPUSH PRN (21:05)
[2019-04-09] MEDS ORDERED: Atropine 0.1 MG/ML 10 ML Syringe IVPUSH PRN ×2 (21:05)
[2019-04-09] MEDS ORDERED: EPINEPHrine 1:10,000 1 MG/10 ML Syringe IVPUSH PRN (21:05)
[2019-04-09] MEDS ORDERED: 50% Dextrose in Water 50 ML Syringe IVPUSH PRN (21:05)
[2019-04-09] MEDS ORDERED: fentaNYL 100 MCG/2 ML SDV IVPUSH PRN (21:05)
[2019-04-09] MEDS ORDERED: Acetaminophen 1,000 MG in Premix Bag 1 BAG IV ONE (21:08)
[2019-04-09] MEDS ORDERED: Glycopyrrolate 0.2 MG/ML SDV ONE (21:20)
[2019-04-09] MEDS ORDERED: Neostigmine Methylsulfate 1 MG/ML 5 ML Syringe ONE (21:20)
--- NOTE | 2019-04-09 21:25 | PCM.OPNOTE ---
- General Post-Op/Procedure Note Date of Surgery/Procedure: 04/09/19 Findings: appendix dilated, dusky in appearance and full of exudate from distal 2/3 of the appendix, cw appendicitis suppurativa; gross perf not observed; [id number] Pre Op Diagnosis: acute appendicitis Post-Op Diagnosis: Same Anesthesia Technique: General ET Tube Primary Surgeon: Lencho Antoine Pathology: sent Complications: None Condition: Stable
[2019-04-09] MEDS ORDERED: Ondansetron 4 MG/2 ML SDV IVPUSH PRN (21:26)
[2019-04-09] MEDS ORDERED: Morphine 4 MG/ML Syringe IVPUSH PRN (21:26)
--- NOTE | 2019-04-09 22:08 | PCM.POSTAN ---
POST ANESTHESIA ASSESSMENT - MENTAL STATUS Mental Status: Alert, Oriented - VITAL SIGNS Vital Signs: Last Vital Signs Temp 36.4 C 04/09/19 21:31 Pulse 74 04/09/19 22:03 Resp 16 04/09/19 22:03 BP 92/53 L 04/09/19 22:03 Pulse Ox 96 04/09/19 22:03 - RESPIRATORY Respiratory Status: Respiratory Rate WNL, Airway Patent, O2 Saturation Stable Free Text/Narrative:: Currently on 2L/NC. - CARDIOVASCULAR CV Status: Pulse Rate WNL, Blood Pressure Stable - GASTROINTESTINAL GI Status: No Symptoms - PAIN Pain Score: 0 - POST OP HYDRATION Hydration Status: Adequate & Stable - OBSERVATIONS Free Text/Narrative:: No concerns related to anesthesia. Patient comfortable. Will continue O2 as needed for saturations less than 90%.
[2019-04-10] MEDS ORDERED: Acetaminophen/oxyCODONE 325-10 MG Tab PO PRN (01:30)
--- NOTE | 2019-04-10 02:48 | CONS ---
DATE OF CONSULTATION: 04/09/2019 DATE OF : 1970 PRIMARY CARE PHYSICIAN: Randee Pike MD This is a consult from Dr. Sesay. Consulting question is acute appendicitis. HISTORY OF PRESENT ILLNESS: The patient is a 49 years old lady who work in the [employer] here in the hospital complaining of a 2-day history of acute onset of periumbilical pain, subsequently migrated to the right lower quadrant, pain is 7/10, and is getting worse. She came to the emergency room, had a CAT scan that shows a dilated appendix with periappendiceal inflammation consistent with acute appendicitis. No perforation. The patient reports she has nausea, vomiting, and diarrhea, and low-grade temp. Denied prior episode and patient also remarked that the pain is getting worse when car stopped in front of a traffic light. ALLERGIES: Please refer to nursing for details. MEDICATIONS: Please refer to nursing for details. PAST MEDICAL HISTORY: Significant for history of IgG nephropathy. No diabetes, RI, CVA or hypertension. SOCIAL HISTORY: Denied tobacco or alcohol abuse. FAMILY HISTORY: No family history of hyperthermia. Family history is noncontributory. PHYSICAL EXAMINATION: GENERAL: A very pleasant nice lady in no acute distress, however, the patient is dozing off and either she was tired or the pain is not very bad. HEENT: Normocephalic and atraumatic. Sclerae anicteric. LUNGS: Clear to auscultation. HEART: Regular rate and rhythm. ABDOMEN: Soft, nondistended. No pulsating tender midline abdominal structure and well-healed surgical scar laparoscopic surgery. Exquisite tenderness on the McBurney point and positive Rovsing sign. PAST SURGICAL HISTORY: 1. Laparoscopic hysterectomy. 2. Laparoscopic cholecystectomy. 3. Laparoscopic gastric sleeve. 4. The patient has normal vaginal delivery x2. LABORATORY DATA: Laboratory value upon consultation; white count was 15.6, H and H are 13 and 41, and platelets of 238. Sodium 143, potassium 4.1, BUN is 15, creatinine is 1.3, glucose is 114. CT scan consistent with acute appendicitis. No perforation. IMPRESSION: Impression, history and physical as well as imaging study consistent with acute appendicitis, and the patient would benefit from timely surgical intervention. We will proceed with laparoscopic appendectomy and possible open, benefit of taking care of situation in timely basis. Risks involved is bleeding, infection, and possible damage to the nearby organ. All has been explained to patient in detail, answered all question and the patient concurred to proceed with plan. We will start with IV fluid at 125, lactated range as well as Mefoxin 2 g IV x1 and got a consent and proceed with surgery. Thank you for the kind referral. HELEN / DAPHNE /[id number]
--- NOTE | 2019-04-10 03:18 | OR ---
SURGEON: Lencho Antoine MD DATE OF PROCEDURE: 04/09/2019 PREOPERATIVE DIAGNOSIS: Acute appendicitis. POSTOPERATIVE DIAGNOSIS: Acute appendicitis. PROCEDURE PERFORMED: Laparoscopic appendectomy. COMPLICATIONS: None. FINDING: Appendix is pretty dilated and full of exudate and dusky in appearance from the mid-third to the tip of the appendix. The proximal 1/3 is not involved and looks pretty normal. Gross perforation is not observed. DESCRIPTION OF PROCEDURE: The patient was taken to the operating room and placed in the supine position. Following induction of general endotracheal anesthesia, the patient's abdomen was prepped and draped in the sterile fashion. A time-out has been called. The patient was identified. The procedure was identified. The antibiotics were identified. The procedure then proceeded. The abdomen was prepped and draped in a standard fashion. After assessment of appropriate landmarks, a 12 millimeter trocar was inserted supraumbilically using Optiview and pneumoperitoneum was then achieved. This was followed with placement of 5 millimeter port in the right upper quadrant and another 5 millimeter port infraumbilically. The camera was inserted supraumbilical site and two laparoscopic Fidel retractors were then inserted through the other two sites. Following the cecum, the appendix was located. The appendix was then lifted up, and using a GI stapler the appendix was amputated at the base. And using the GI stapler, the mesoappendix was then amputated. The appendix was retrieved by an endoscopic bag and sent for pathologist. This was then followed by re-insertion of the camera to examine the staple line, and hemostasis. The trocars were then removed. The umbilical site was closed with 2-0 Vicryl deep stitch and 4 -0 Vicryl and dermabond; the other 2 5 mm port sites were closed with 4-0 Vicryl and dermabond. The patient was then awakened, extubated, and transferred to the recovery room in hemodynamically stable condition. Prior to closing, sponge count and instrument count was correct. Intraoperative findings as dictated above. At the end the surgery, skin deepa were used instead of Monocryl for approximating the skin for appropriate dressing. This was a consult from Dr. Sesay. As always, thank you for the kind referral. HELEN / DAPHNE /[id number]
--- NOTE | 2019-04-10 09:19 | PCM48HPAN ---
Post Anesthesia Note - EVALUATION WITHIN 48HRS OF ANESTHETIC Vital Signs in Normal Range: Yes Patient Participated in Evaluation: Yes Respiratory Function Stable: Yes Airway Patent: Yes Cardiovascular Function Stable: Yes Hydration Status Stable: Yes Pain Control Satisfactory: Yes Nausea and Vomiting Control Satisfactory: Yes Mental Status Recovered: Yes Vital Signs: Last Vital Signs Temp 36.1 C 04/10/19 07:50 Pulse 70 04/10/19 07:50 Resp 20 04/10/19 07:50 BP 97/54 L 04/10/19 07:50 Pulse Ox 92 L 04/10/19 07:50 - COMMENTS/OBSERVATIONS Free Text/Narrative:: Patient sitting up at edge of bed drinking fluids. She denies any issues related to anesthesia. She states she is doing good and rates her pain a 6/10. She says she is a little uncomfortable, but feels better than she has in a long time.
== END 2019-04-10 11:38 | disposition home or self-care (01) ==
LOC: MW.ED 15:13 → MW.SDS 19:20 → MW.MS 22:27 → MW.SDS 04-10 11:38
PROVIDERS: ATTEND Surgery
DX: K35.80 Unspecified acute appendicitis (principal); E78.00 Pure hypercholesterolemia, unspecified; K21.9 Gastro-esophageal reflux disease without esophagitis; F41.9 Anxiety disorder, unspecified; Z79.899 Other long term (current) drug therapy
CPT/HCPCS: 36415; 44970; 74176; 80053; 81001; 83690; 84484; 85025; 88304; 96361; 96365; 96375; 99285; A9270; C1776; J0131; J0694; J1100; J2001; J2270; J2370; J2405; J2704; J3010; J3490; J7030; J7120; 00840; 99284